=== PATIENT | female | born 1970 | race Two or more races ===

== ENCOUNTER 2018-12-07 11:24 | Outpatient (CLI) | payer OTHER | END 2018-12-07 11:32 | disposition home or self-care (01) | LOC: RAD 11:24 | DX: M25.562 Pain in left knee (principal) ==

== ENCOUNTER 2021-01-22 09:09 | Outpatient (CLI) | payer OTHER | END 2021-01-22 09:22 | disposition home or self-care (01) | LOC: RAD 09:09 | PROVIDERS: ATTEND Orthopaedic Surgery | DX: M17.0 Bilateral primary osteoarthritis of knee (principal) ==

== ENCOUNTER 2022-10-18 07:45 | Inpatient (IN) | payer OTHER ==
[~2022-10-18] VITALS: Ht 160 cm; Wt 104.3 kg
[2022-10-18] MEDS ORDERED: TRULICITY3 MG/0.5 M (10:46)
[2022-10-18] MEDS ORDERED: METFORMIN HCL1000 M2 PO (10:46)
[2022-10-18] MEDS ORDERED: LOSARTAN-HCTZ1 EAC1 PO (10:46)
[2022-10-18] MEDS ORDERED: ZOLPIDEM TART12.5 MG PO (10:47)
[2022-10-18] MEDS ORDERED: GLIMEPIRIDE2 MG (10:47)
[2022-10-18] MEDS ORDERED: LYRICA300 MG PO (10:47)
[2022-10-18] MEDS ORDERED: MULTIPLE VITAM1 EAC2 PO (10:48)
[2022-10-18] MEDS ORDERED: CYMBALTA60 MG PO (10:48)
[2022-10-18] MEDS ORDERED: ALPRAZOLAM ODT2 MG PO (10:48)
[2022-10-18] MEDS ORDERED: D3 + K2 DOTS 11 EACH PO (10:49)
[2022-10-23] MEDS ORDERED: AMITRIPTYLINE H25 MG (11:21)
[2022-10-23] MEDS ORDERED: ATORVASTATIN CA20 MG (14:18)
[2022-10-23] MEDS ORDERED: GLYXAMBI 25 MG1 EACH (14:18)
[2022-10-23] MEDS ORDERED: [UNRECOGNIZED DRUG - CODE] (14:19)
[2022-10-25] MEDS ORDERED: ACETAMINOPHEN-1 EAC2 PO (06:42)
[2022-10-25] MEDS ORDERED: XARELTO10 MG PO (06:42)
[2022-10-25] MEDS ORDERED: INTEGRA PLUS C1 EACH PO (06:42)
[2022-10-25] MEDS ORDERED: BACTRIM DS TAB1 EACH PO (06:42)
== END 2022-10-25 16:09 | DRG 470 ==
LOC: O/R 10-23 07:13 → SURH 10-23 07:45
PROVIDERS: ADMIT Orthopaedic Surgery Sports Medicine; ATTEND Orthopaedic Surgery Sports Medicine
PROC: 0SRD0J9 Replacement of Left Knee Joint with Synthetic Substitute, Cemented, Open Approach (ICD-10-PCS; principal; 2022-10-23 10:15)
DX: M17.12 Unilateral primary osteoarthritis, left knee (principal); I10 Essential (primary) hypertension; Z20.822 Contact with and (suspected) exposure to COVID-19